=== PATIENT | male | born 2000 | race Caucasian/White ===

== ENCOUNTER 2022-03-28 13:42 | Inpatient (IN) | payer OTHER, SELFPAY ==
[2022-03-28 14:14] LABS: #Basophils 0.1 10x3/uL (0.0-0.2); #Monocytes 0.7 10x3/uL (0.0-1.1); #Neutrophils 5.3 10x3/uL (1.5-8.4); %Basophils 1.2 % (0.0-2.0); %Eosinophils 0.1 % (0.0-6.0); %Lymphocytes 9.3 % (18.0-47.0); %Monocytes 9.6 % (0.0-10.0); %Neutrophils 78.6 % (40.0-75.0); Hemoglobin 15.9 g/dL (13.5-17.5); Mean Corpuscular HGB CONC 33.8 g/dL (32.0-36.0); Mean Corpuscular Hemoglobin 31.4 pg (27.0-33.0); Mean Corpuscular Volume 92.9 fl (81.2-95.1); Mean Platelet Volume 11.2 fl (7.4-10.4); Platelet Count 234 10x3/uL (150-450); RBC Distribution Width 12.3 % (11.5-14.5); Red Blood Cell (RBC) Count 5.07 10x6/uL (4.32-5.72); White Blood Cell (WBC) Count 6.8 10x3/uL (3.5-10.5)
[2022-03-28 14:19] LABS: Actual Bicarbonate (HCO3v) 10 mEq/L (22-28); Base Excess -18.8 mEq/L (-2.0 to +3.0); Calcium, Ionized (venous) 1.17 mmol/L (1.16-1.32); Chloride (VBG) 99 mmol/L (98-106); Hemoglobin (Hb) 17.1 g/dL (13.2-17.3); Potassium (VBG) 5.49 mmol/L (3.70-5.30); Puncture Site Other Site; Sodium 134.5 mmol/L (133-146)
[2022-03-28 14:26] LABS: Bilirubin Neg (Negative); Blood, Urine Negative (Negative); Clarity Clear (Clear); Glucose, Urine (Dipstick) >=1000 mg/dL (Negative); Ketone, Urine 150 mg/dL (Negative); Leukocyte Negative (Negative); Nitrite Negative (Negative); Protein, Urine (Dipstick) Negative (Neg-Trace); Specific Gravity, Urine 1.015 (1.002-1.036); Urobilinogen Normal mg/dL (Less than 2)
[2022-03-28 14:35] LABS: ALT (SGPT) 746 U/L (8-55); AST (SGOT) 772 U/L (10-45); Albumin 4.2 g/dL (3.5-5.0); Alkaline Phosphatase 229 U/L (50-130); Anion Gap 33 mmol/L (10-20); BUN (Urea Nitrogen) 18 mg/dL (8.4-21.0); Bilirubin, Total 0.8 mg/dL (0.2-1.2); Calc. Creatinine Clearance 0 mL/min (70-130); Calcium 8.8 mg/dL (7.8-10.44); Chloride 98 mmol/L (98-107); Estimated GFR 97; Globulin 3.1 g/dL (2.4-3.5); Lipase 7 U/L (8-78); Magnesium 1.7 mg/dL (1.7-2.2); Potassium 5.7 mmol/L (3.5-5.1); Protein, Total 7.3 g/dL (6.0-8.3); Sodium 133 mmol/L (136-145)
[2022-03-28 14:39] LABS: Carbon Dioxide 8 mmol/L (22-29); Glucose 612 mg/dL (70-105)
[2022-03-28] MEDS ORDERED: Insulin Regular 300 UNITS/3 ML VIAL ONE (14:46)
[2022-03-28] MEDS ORDERED: INSULIN REGULAR IN 0.9 % NACL 100 UNIT/100 ML BAG ONE (14:46)
[2022-03-28] MEDS ORDERED: Ondansetron PF 4 MG/2 ML Vial ONE (14:47)
[2022-03-28] MEDS ORDERED: Sodium Chloride 0.9% 1,000 ML IV PRN ×4 (15:31)
[2022-03-28] MEDS ORDERED: Electrolyte Replacement Protocol 1 EACH IVPB PRN (15:31)
[2022-03-28] MEDS ORDERED: NS 0.9% w/ 20 MEQ KCL 1,000 ML IV PRN ×2 (15:31)
[2022-03-28] MEDS ORDERED: Dextrose 5 %-0.45 % NaCl 1,000 ML IV PRN (15:31)
[2022-03-28 16:15] LABS: MONO NEGATIVE CONTROL ZONE White (Negative) (White); MONO POSITIVE CONTROL Pink Line (Positive) (PINK/RED); Mononucleosis NEGATIVE (NEGATIVE)
[2022-03-28 16:29] LABS: SARS-CoV-2 NAA Rapid Test DETECTED (NotDetected)
[2022-03-28 16:37] LABS: BUN (Urea Nitrogen) 17 mg/dL (8.4-21.0); Calc. Creatinine Clearance 0 mL/min (70-130); Calcium 8.5 mg/dL (7.8-10.44); Chloride 108 mmol/L (98-107); Estimated GFR 100; Glucose 383 mg/dL (70-105); Potassium 4.7 mmol/L (3.5-5.1); Sodium 138 mmol/L (136-145)
[2022-03-28 16:41] LABS: HIV (1/2) Antibody/Antigen Non-Reactive (NonReactive); HIV 1/2 INDEX 0.16 S/CO (<1.00)
[2022-03-28 16:44] LABS: Carbon Dioxide Less than 8 mmol/L (22-29)
[2022-03-28 16:55] VITALS: BMI 18.5
[2022-03-28] MEDS ORDERED: INSULIN REGULAR IN 0.9 % NACL 100 UNIT in Premix Bag 1 BAG IVPB SCH (17:15)
[2022-03-28] MEDS ORDERED: Magnesium 2 GM/50 ML(in water) 2 GM in Premix Bag 1 BAG IVPB SCH (18:00)
[2022-03-28] MEDS: D5 1/2 NS w/20 mEq KCL 1,000 ML IV PRN ×2 (18:15→22:21)
[2022-03-28 20:13] LABS: Anion Gap 20 mmol/L (10-20); BUN (Urea Nitrogen) 12 mg/dL (8.4-21.0); Calc. Creatinine Clearance 117 mL/min (70-130); Calcium 8.5 mg/dL (7.8-10.44); Carbon Dioxide 12 mmol/L (22-29); Chloride 108 mmol/L (98-107); Estimated GFR 127; Glucose 311 mg/dL (70-105); Potassium 4.5 mmol/L (3.5-5.1); Sodium 135 mmol/L (136-145)
[2022-03-28] MEDS ORDERED: Ondansetron PF 4 MG/2 ML Vial IVP PRN (20:45)
[2022-03-28 23:15] LABS: Hep A IgM AB Non-Reactive (NonReactive); Hep A IgM S/CO 0.19 S/CO (0-0.79); Hep C IgG Ab Non-Reactive (NonReactive); Hep C Index 0.06 S/CO (0-0.79); Hepatitis B Core IgM Abs Non-Reactive (NonReactive)
[2022-03-29 00:15] LABS: Anion Gap 14 mmol/L (10-20); BUN (Urea Nitrogen) 9 mg/dL (8.4-21.0); Calc. Creatinine Clearance 135 mL/min (70-130); Calcium 8.3 mg/dL (7.8-10.44); Carbon Dioxide 16 mmol/L (22-29); Chloride 109 mmol/L (98-107); Estimated GFR 132; Glucose 204 mg/dL (70-105); Potassium 4.2 mmol/L (3.5-5.1); Sodium 135 mmol/L (136-145)
[2022-03-29 01:56] LABS: HBSAg Index 0.26 S/CO (0-0.99); Hep B Surf Ag Non-Reactive S/CO (NonReactive)
[2022-03-29] MEDS: D5 1/2 NS w/20 mEq KCL 1,000 ML IV PRN ×2 (02:29→06:06)
[2022-03-29 05:06] LABS: Anion Gap 18 mmol/L (10-20); BUN (Urea Nitrogen) 7 mg/dL (8.4-21.0); Calc. Creatinine Clearance 117 mL/min (70-130); Calcium 8.2 mg/dL (7.8-10.44); Carbon Dioxide 15 mmol/L (22-29); Chloride 108 mmol/L (98-107); Estimated GFR 127; Glucose 206 mg/dL (70-105); Magnesium 1.9 mg/dL (1.7-2.2); Phosphorus 3.1 mg/dL (2.3-4.7); Potassium 4.4 mmol/L (3.5-5.1); Sodium 137 mmol/L (136-145)
[2022-03-29] MEDS ORDERED: Magnesium 2 GM/50 ML(in water) 2 GM in Premix Bag 1 BAG IVPB SCH (05:15)
[2022-03-29 09:53] LABS: ALT (SGPT) 447 U/L (8-55); Albumin 3.2 g/dL (3.5-5.0); Alkaline Phosphatase 144 U/L (50-130); Anion Gap 15 mmol/L (10-20); BUN (Urea Nitrogen) 5 mg/dL (8.4-21.0); Bilirubin, Total 0.3 mg/dL (0.2-1.2); Calc. Creatinine Clearance 153 mL/min (70-130); Calcium 8.2 mg/dL (7.8-10.44); Carbon Dioxide 15 mmol/L (22-29); Chloride 107 mmol/L (98-107); Estimated GFR 136; Glucose 198 mg/dL (70-105); Iron 58 ug/dL (65-175); Iron Binding Capacity, Total 225 mcg/dL (261-462); Potassium 4.3 mmol/L (3.5-5.1); Protein, Total 6.2 g/dL (6.0-8.3); Sodium 133 mmol/L (136-145)
[2022-03-29 10:05] LABS: AST (SGOT) 264 U/L (10-45); Bilirubin, Direct 0.2 mg/dL (0.1-0.3)
[2022-03-29] MEDS ORDERED: HumaLOG 300 UNITS/3 ML VIAL SC PRN (10:30)
[2022-03-29] MEDS ORDERED: Dextrose 50% Abboject 50 ML SYRINGE IVP PRN (10:30)
[2022-03-29] MEDS ORDERED: Dextrose 5% in Water 1,000 ML IV PRN (10:30)
[2022-03-29] MEDS ORDERED: Lantus 1000 UNITS/10 ML VIAL SC SCH (11:00)
[2022-03-29] MEDS ORDERED: Prevnar 13-Val Conj/PF 0.5 ML SYRINGE IM ONE (17:15)
== END 2022-03-29 13:30 | disposition home or self-care (01) | DRG 637 ==
LOC: CSHERS 13:42 → CSHIMCU 15:59 → CSHICU 16:48
PROVIDERS: ADMIT Internal Medicine; ATTEND Internal Medicine
PROC: 8E0ZXY6 Isolation (ICD-10-PCS; principal; 2022-03-28)
DX: E10.10 Type 1 diabetes mellitus with ketoacidosis without coma (principal); U07.1 COVID-19; E86.0 Dehydration; K75.9 Inflammatory liver disease, unspecified
CPT/HCPCS: 36415; 36416; 71045; 76705; 80048; 80053; 80074; 80076; 81003; 82010; 82728; 82805; 83540; 83550; 83690; 83735; 84100; 84484; 85025; 86308; 87389; 94760; J1815; J2405; J3475; J3480

== ENCOUNTER 2022-10-19 12:02 | Emergency (ER) | payer OTHER ==
[2022-10-19] MEDS ORDERED: Ketorolac Tromethamine 30 MG/ML VIAL ONE (12:24)
[2022-10-19] MEDS ORDERED: Ondansetron PF 4 MG/2 ML Vial ONE (12:25)
[2022-10-19 12:29] LABS: #Basophils 0.1 10x3/uL (0.0-0.2); #Eosinphils 0.2 10x3/uL (0.0-0.5); #Monocytes 0.5 10x3/uL (0.0-1.1); #Neutrophils 10.2 10x3/uL (1.5-8.4); %Basophils 0.6 % (0.0-2.0); %Eosinophils 1.7 % (0.0-6.0); %Lymphocytes 20.5 % (18.0-47.0); %Monocytes 3.4 % (0.0-10.0); %Neutrophils 73.4 % (40.0-75.0); Hemoglobin 16.8 g/dL (13.5-17.5); Mean Corpuscular HGB CONC 35.8 g/dL (32.0-36.0); Mean Corpuscular Hemoglobin 31.4 pg (27.0-33.0); Mean Corpuscular Volume 87.7 fl (81.2-95.1); Mean Platelet Volume 10.4 fl (7.4-10.4); Platelet Count 347 10x3/uL (150-450); RBC Distribution Width 12.1 % (11.5-14.5); Red Blood Cell (RBC) Count 5.35 10x6/uL (4.32-5.72); White Blood Cell (WBC) Count 13.8 10x3/uL (3.5-10.5)
[2022-10-19 12:43] LABS: ALT (SGPT) 47 U/L (8-55); AST (SGOT) 51 U/L (5-34); Albumin 4.6 g/dL (3.5-5.0); Alkaline Phosphatase 175 U/L (50-130); BUN (Urea Nitrogen) 19 mg/dL (8.9-20.6); Bilirubin, Total 1.2 mg/dL (0.2-1.2); Calc. Creatinine Clearance 0 mL/min (70-130); Chloride 97 mmol/L (98-107); Estimated GFR 92; Globulin 3.4 g/dL (2.4-3.5); Magnesium 1.9 mg/dL (1.7-2.2); Phosphorus 3.4 mg/dL (2.3-4.7); Potassium 4.7 mmol/L (3.5-5.1); Sodium 133 mmol/L (136-145)
[2022-10-19 12:54] LABS: Carbon Dioxide Less than 8 mmol/L (22-29); Glucose 679 mg/dL (70-105)
[2022-10-19] MEDS ORDERED: Insulin Regular 300 UNITS/3 ML VIAL ONE (12:54)
[2022-10-19] MEDS ORDERED: Potassium Chloride 20 MEQ/100 ML PREMIX BAG ONE (13:02)
[2022-10-19 15:09] LABS: Anion Gap 25 mmol/L (10-20); BUN (Urea Nitrogen) 19 mg/dL (8.9-20.6); Calc. Creatinine Clearance 0 mL/min (70-130); Calcium 8.7 mg/dL (7.8-10.44); Carbon Dioxide 11 mmol/L (22-29); Chloride 103 mmol/L (98-107); Estimated GFR 103; Potassium 5.2 mmol/L (3.5-5.1); Sodium 134 mmol/L (136-145)
[2022-10-19 15:24] LABS: Glucose 433 mg/dL (70-105)
[2022-10-19 15:47] LABS: Actual Bicarbonate (HCO3v) 9 mEq/L (22-28); Base Excess -12.9 mEq/L (-2.0 to +3.0); Calcium, Ionized (venous) 1.21 mmol/L (1.16-1.32); Chloride (VBG) 95 mmol/L (98-106); Hemoglobin (Hb) 17.5 g/dL (13.2-17.3); Potassium (VBG) 4.69 mmol/L (3.70-5.30); Puncture Site Other Site; RapidComm Collect By Lab; Sodium 132.3 mmol/L (133-146); pH (venous) 7.36 (7.32-7.43)
== END 2022-10-19 16:55 | disposition home or self-care (01) ==
LOC: CSHERS 12:02
DX: E10.10 Type 1 diabetes mellitus with ketoacidosis without coma (principal)
CPT/HCPCS: 36416; 71045; 80053; 82010; 82805; 83690; 83735; 84100; 85025; 93005; 96361; 96374; 96375; J1815; J1885; J2405; J3480